=== PATIENT | male | born 1965 | race Caucasian/White ===

== ENCOUNTER 2024-11-23 11:04 | Emergency (ER) | payer SELFPAY ==
[2024-11-23 11:53] LABS: #Basophils 0.15 10x3/uL (0.0-0.2); #Eosinophils 1.73 10x3/uL (0.0-0.7); #Monocytes 0.68 10x3/uL (0.11-0.59); #Neutrophils 3.06 10x3/uL (1.40-6.50); %Basophils 2.1 % (0.0-1.0); %Eosinophils 24.3 % (0.0-10.0); %Lymphocytes 20.9 % (21.0-51.0); %Monocytes 9.6 % (0.0-10.0); %Neutrophils 43.0 % (42.0-75.0); Hematocrit 33.3 % (42.0-52.0); Hemoglobin 11.3 g/dL (14.0-18.0); Mean Corpuscular Hemoglobin 32.5 pg (27.0-31.0); Mean Corpuscular Volume 95.7 fL (78.0-98.0); Platelet Count 62 10x3/uL (130-400); Red Blood Cell (RBC) Count 3.48 mill/uL (4.70-6.10); White Blood Cell (WBC) Count 7.12 10x3/uL (4.8-10.8)
[2024-11-23 12:13] LABS: ALT (SGPT) 74 U/L (Less than 45); AST (SGOT) 155 U/L (11-34); Albumin 2.2 g/dL (3.1-4.5); Alkaline Phosphatase 97 U/L (40-110); Anion Gap 7 mmol/L (10-20); BUN (Urea Nitrogen) 13 mg/dL (8.4-25.7); Bilirubin, Total 2.2 mg/dL (0.3-1.2); Calc. Creatinine Clearance 0 mL/min (70-130); Calcium 7.5 mg/dL (7.8-10.44); Carbon Dioxide 23 mmol/L (22-29); Chloride 111 mmol/L (98-107); Globulin 4.3 g/dL (2.4-3.5); Glucose 96 mg/dL (70-105); Potassium 3.9 mmol/L (3.5-5.1); Sodium 137 mmol/L (136-145)
[2024-11-23 12:28] LABS: Burr Cells SLIGHT = 2-5 cells HPF (0-1); Platelet Adequacy Comment Platelets Decreased; Polychromasia SLIGHT = 2-3 cells HPF (0-2)
[2024-11-23] MEDS ORDERED: Ketorolac Tromethamine 30 MG (1 mL) VIAL ONE (12:47)
== END 2024-11-23 12:55 | disposition home or self-care (01) ==
LOC: ERS 11:04
DX: I10 Essential (primary) hypertension (principal); F17.210 Nicotine dependence, cigarettes, uncomplicated
CPT/HCPCS: 71045; 80053; 83880; 84484; 85025; 93005; 96374; J1885